=== PATIENT | female | born 1965 | race African-American/Black ===

== ENCOUNTER 2016-11-08 11:30 | Inpatient (IN) | payer OTHER ==
--- NOTE | ~2016-11-08 | OR ---
Unit #: [id number] #: [id number] Patient: DEREK CRHISTIAN [id number] [facility]. [place], [place] [address] [id number] Salazar MR#: [id number] NAME: DEREK CHRISTIAN ROOM: 47 Date of Procedure: 11/09/2015 Admission Date: 11/09/2015 Surgeon: Ajay Boone III, M.D. : 1965 Attending Physician: Ajay Boone III, M.D. Primary Care Physician: Chapito Jack Sr., M.D. OPERATIVE REPORT PREOPERATIVE DIAGNOSIS Lap band intolerance. POSTOPERATIVE DIAGNOSIS Lap band intolerance. PROCEDURE PERFORMED Laparoscopic removal of adjustable gastric band and port. [employer] REPAIRER Caleb Loaiza M.D. SPECIMENS None. COMPLICATIONS None apparent. ESTIMATED BLOOD LOSS Minimal. ANESTHESIA General endotracheal tube anesthesia. INDICATIONS FOR PROCEDURE This is a 50-year-old lady, who has had terrible results with lap banding. She has vomiting daily, however, workup of the band shows no inherent abnormalities with the band. There is no evidence of any slipper obstruction. She does have poor dentition. I think the failure of her to be able to chew her food appropriately, it is what causing her vomiting. She is here today for band removal. DESCRIPTION OF PROCEDURE After consent was obtained, the patient was brought to the operating room and placed in the supine position. General anesthetic was administered and her abdomen was prepped and draped in standard surgical fashion. I made a 1-inch incision just above her port. I dissected down, identified the port and excised it from the surrounding tissue. The two lateral stay sutures were removed as well. I then trimmed the excess band tubing and slid a 5-mm empty trocar housing over the tubing and obtained CO2 pneumoperitoneum. Next, I used a Visiport to enter the peritoneal cavity at that location. I placed a 10-mm port in the left upper quadrant, a Unit #: [id number] #: [id number] Patient: DEREK CHRISTIAN 5-mm port in the right upper quadrant. I began by following the tubing all way up to the stomach. There was no inflammation of the band whatsoever. I was able to easily divide the band in half with Endo-david and it was removed without any trauma to the upper part of the stomach. The band was extracted through the initial port incision with some dilatation of the fascia. I had excellent hemostasis and all needle, sponge, and instrument counts were correct x2. I removed all the trocars and released the pneumoperitoneum. All the incisions were injected with 0.25% plain Marcaine and reapproximated the fascia at the epigastric port site with interrupted 0 Vicryl suture. I then reapproximated the skin edges with interrupted 4-0 Vicryl subcuticular suture and Steri-Strips were then applied. The patient tolerated the procedure without any problems and returned to the recovery room in stable condition. Dictated by... Ajay Boone III, M.D. VCL/wily TD: 11/10/2015 03:18 JOB #: [id number] OPERATIVE REPORT X Ajay Boone III, MD PROCEDURE OPERATIVE NOTE
[~2016-11-08 11:30] MED LIST: ALBUTEROL17 GM INH; ASPIRIN EC81 M1 PO; ASPIRIN81 M2 PO; BACLOFEN10 MG PO; BUSPIRONE HCL10 MG PO; CAPOZIDE; CLARITIN10 M2 PO; FERROUS SULFATE PO; FUROSEMIDE40 MG PO; GABAPENTIN300 MG PO; GLIPIZIDE10 MG PO; HCTZ PO; HYDROCHLOROTHIA25 MG PO; HYDROCODON-ACE1 EAC9 PO; LASIX; LASIX20 MG PO; LISINOPRIL PO; LISINOPRIL10 MG PO; LOSARTAN POTASS25 MG PO; METFORMIN HCL500 M1 PO; METOPROLOL TART25 MG PO; NITROFURANTOIN100 M4 PO; OMEPRAZOLE40 M1 PO; ONDANSETRON4 MG/TAB PO; ORUDIS75 M1 PO; POTASSIUM CHLO10 ME1 PO; POTASSIUM CHLO10 MEQ DOB; SULAR
== END 2016-11-09 14:05 | disposition home or self-care (01) ==
LOC: C4C 11:30
PROC: 0DP64CZ Removal of Extraluminal Device from Stomach, Percutaneous Endoscopic Approach (ICD-10-PCS; principal; 2016-11-08)
DX: K95.09 Other complications of gastric band procedure (principal); Z68.42 Body mass index [BMI] 45.0-49.9, adult; I11.0 Hypertensive heart disease with heart failure; I50.9 Heart failure, unspecified; E11.9 Type 2 diabetes mellitus without complications; K21.9 Gastro-esophageal reflux disease without esophagitis; E66.01 Morbid (severe) obesity due to excess calories; Z79.899 Other long term (current) drug therapy; E78.5 Hyperlipidemia, unspecified; J45.909 Unspecified asthma, uncomplicated; R13.10 Dysphagia, unspecified; G47.30 Sleep apnea, unspecified; Z87.891 Personal history of nicotine dependence; Z91.040 Latex allergy status; M06.9 Rheumatoid arthritis, unspecified; I25.2 Old myocardial infarction; J44.9 Chronic obstructive pulmonary disease, unspecified; Z80.3 Family history of malignant neoplasm of breast; Z82.49 Family history of ischemic heart disease and other diseases of the circulatory system; Z82.3 Family history of stroke; Z82.5 Family history of asthma and other chronic lower respiratory diseases
CPT/HCPCS: 82947; 84132; 94760; 96374; 96375; 96376; G0378; J0330; J0690; J1650; J1815; J1885; J1940; J2250; J2270; J2405; J2710; J3010